=== PATIENT | female | born 1980 | race Caucasian/White ===

== ENCOUNTER 2019-01-21 01:28 | Emergency (ER) | payer BC ==
[~2019-01-21] VITALS: Ht 167.6 cm; Wt 59.1 kg
[~2019-01-21 01:28] MED LIST: ALPR-624; CYAN-19 PO; DIPH-522; ERGO400C PO; OMEP-84 PO; PROP10TA10 PO; SULF500T59 PO; TRINTELLIX 20MG TAB PO
[2019-01-21] MEDS ORDERED: pantoprazole 40 MG vial IV ONE (02:40)
[2019-01-21] MEDS ORDERED: ondansetron/PF 4mg/2ml inj IV ONE (02:40)
[2019-01-21] MEDS ORDERED: normal saline 1000ml 1,000 ML IV ONE (02:40)
[2019-01-21] MEDS ORDERED: dicyclomine 10mg/ml 2ml ampule IM ONE (02:40)
[2019-01-21] MEDS ORDERED: morphine 4 MG/ML inj SYRINge IV ONE (02:40)
[2019-01-21] MEDS ORDERED: ketorolac trometh. 30mg/ml inj. IV ONE (02:45)
--- NOTE | 2019-01-21 03:33 | NUR ---
pt reports she is feelng worse since getting the meds (given aprox 8 min ago). she feels very nauseaus. dr. green updated and states to given the meds more time.
[2019-01-21] MEDS ORDERED: proCHLORperazine 10 MG/2 ml inj IV ONE (04:10)
[2019-01-21] MEDS ORDERED: LORazepam 2 mg/ml vial IV ONE (04:10)
[2019-01-21] MEDS ORDERED: PHE25R PR (04:38)
--- NOTE | 2019-01-21 04:48 | NUR ---
PT WITH STABLE VS AND REPORTS NO FUTHER NAUSEA AFTER ADMIN OF COMPAZINE
[2019-01-21 05:14] VITALS: BP 134/78
== END 2019-01-21 05:16 | disposition home or self-care (01) ==
LOC: ER 01:29
DX: R10.9 Unspecified abdominal pain (principal); G89.29 Other chronic pain; K50.90 Crohn's disease, unspecified, without complications; E07.9 Disorder of thyroid, unspecified; F12.90 Cannabis use, unspecified, uncomplicated; Z56.0 Unemployment, unspecified; Z88.6 Allergy status to analgesic agent; Z87.11 Personal history of peptic ulcer disease; Z79.899 Other long term (current) drug therapy
CPT/HCPCS: 96361; 96374; 96375; 99283; C9113; J0500; J0780; J1885; J2060; J2270; J2405; J7030

== ENCOUNTER 2019-03-19 16:20 | Emergency (ER) | payer BC ==
[~2019-03-19] VITALS: Ht 170.2 cm; Wt 61.4 kg
[~2019-03-19 16:20] MED LIST changes: +PHE25R PR
[2019-03-19 16:46] VITALS: BP 143/88
[2019-03-19] MEDS ORDERED: orphenadrine citrate 60mg/2ml inj. IM ONE (18:15)
[2019-03-19] MEDS ORDERED: CYCL-1 PO (18:32)
== END 2019-03-19 19:15 | disposition home or self-care (01) ==
LOC: ER 16:20
DX: S29.019A Strain of muscle and tendon of unspecified wall of thorax, initial encounter (principal); R05 Cough; F12.90 Cannabis use, unspecified, uncomplicated; Z98.890 Other specified postprocedural states; Z56.0 Unemployment, unspecified; Z88.8 Allergy status to other drugs, medicaments and biological substances; Z79.899 Other long term (current) drug therapy; X50.1XXA Overexertion from prolonged static or awkward postures, initial encounter; Y93.89 Activity, other specified; Y92.89 Other specified places as the place of occurrence of the external cause; Y99.8 Other external cause status
CPT/HCPCS: 96372; 99283; J2360

== ENCOUNTER 2019-11-07 01:52 | Emergency (ER) | payer BC ==
[~2019-11-07] VITALS: Ht 165.1 cm; Wt 61.4 kg
[~2019-11-07 01:52] MED LIST changes: -CYAN-19 PO; +CYAN-51 PO; +CYCL-1 PO
[2019-11-07] MEDS ORDERED: normal saline 1000ML IV soln IVB ONE (01:55)
[2019-11-07] MEDS ORDERED: ondansetron/PF 4mg/2ml inj IV ONE (01:55)
[2019-11-07] MEDS ORDERED: haloperidol lactate 5mg/ml inj IM ONE (02:00)
[2019-11-07] MEDS ORDERED: LORazepam 2 mg/ml vial IV ONE (02:00)
[2019-11-07] MEDS ORDERED: fentaNYL/PF 50MCG/1 ML 2ML syringe IV ONE (02:10)
[2019-11-07 02:13] LABS: BASOPHILS # (AUTO) 0.1 X10'3 (0-0.2); BASOPHILS % (AUTO) 0.8 % (0-1); EOSINOPHILS % (AUTO) 0 % (0-6); HEMATOCRIT 42.8 % (35.0-45.0); HEMOGLOBIN 14.9 g/dl (12.0-16.0); LYMPHOCYTES # (AUTO) 1.4 X10'3 (1.1-4.8); LYMPHOCYTES % (AUTO) 10.3 % (21-51); MEAN CORPUSCULAR HGB CONC 34.9 g/dL (33.0-36.5); MEAN CORPUSCULAR VOLUME 83.3 FL (78-98); MEAN PLATELET VOLUME 8.4 FL (7.4-10.4); MONOCYTES # (AUTO) 0.9 X10'3 (0-0.9); MONOCYTES % (AUTO) 6.4 % (2-12); NEUTROPHILS # (AUTO) 11.2 X10'3 (1.8-7.7); NEUTROPHILS % (AUTO) 82.5 % (42-75); PLATELET COUNT 356 X10'3 (140-440); RED BLOOD COUNT 5.14 X10'6 (4.20-5.60); RED CELL DISTRIBUTION WIDTH 14.8 % (11.5-14.5); WHITE BLOOD COUNT 13.6 X10'3 (4.5-11.0)
[2019-11-07 02:24] LABS: ALANINE AMINOTRANSFERASE 46 U/L (12-78); ALBUMIN 4.5 G/DL (3.4-5.0); ALBUMIN/GLOBULIN RATIO 1.2 (1.1-1.5); ALKALINE PHOSPHATASE 116 IU/L (46-116); ANION GAP 13 (8-16); ASPARTATE AMINO TRANSFERASE 130 U/L (10-37); BILIRUBIN,TOTAL 0.7 MG/DL (0.1-1.0); BLOOD UREA NITROGEN 15 MG/DL (7-18); BUN/CREATININE RATIO 17.6 (6.6-38.0); CALCIUM 10.1 MG/DL (8.5-10.1); CHLORIDE 100 MMOL/L (99-107); CREATININE 0.85 MG/DL (0.40-0.90); GLUCOSE 122 MG/DL (70-104); LIPASE 82 U/L (73-393); POTASSIUM 3.7 MMOL/L (3.5-5.1); SODIUM 136 MMOL/L (135-145); TOTAL PROTEIN 8.2 G/DL (6.4-8.2); eGFR 74 ML/MIN
[2019-11-07 02:41] LABS: CLARITY,URINE SLIGHTLY CLOUDY (Clear); COLOR,URINE YELLOW (Yellow); GLUCOSE, URINE NEGATIVE (Neg); KETONES,URINE 15 mg/dl (Neg); LEUKOCYTE ESTERASE ,URINE NEGATIVE (Neg); NITRITES, URINE NEGATIVE (Neg); OCCULT BLOOD,URINE SMALL (Neg); PH,URINE 5.5 (4.8-8.0); PROTEIN,URINE 100 mg/dl (Neg); UROBILINOGEN,URINE 0.2 E.U/dL (0.2-1.0)
[2019-11-07 02:43] LABS: URINE HCG NEGATIVE (NEG)
[2019-11-07 03:07] LABS: UA COLLECTION TYPE CLN CATCH MIDSTREAM
[2019-11-07 03:10] LABS: BACTERIA,URINE 1+ /HPF (Neg); MUCUS STRANDS MANY /LPF (Neg); RBC,URINE 0-2 /HPF (0-2); SQUAMOUS EPITHELIAL CELL,UR MODERATE /LPF (FEW)
[2019-11-07 03:11] LABS: CELLULAR CAST 0-4 /LPF (NEGATIVE); COARSE GRANULAR CAST 0-3 /LPF (NEGATIVE)
[2019-11-07 03:39] VITALS: BP 107/75
== END 2019-11-07 03:41 | disposition home or self-care (01) ==
LOC: ER 01:52
DX: R10.84 Generalized abdominal pain (principal); R50.9 Fever, unspecified; R11.2 Nausea with vomiting, unspecified; F41.9 Anxiety disorder, unspecified; F32.9 Major depressive disorder, single episode, unspecified; Z90.89 Acquired absence of other organs; Z56.0 Unemployment, unspecified; Z88.8 Allergy status to other drugs, medicaments and biological substances; Z79.899 Other long term (current) drug therapy
CPT/HCPCS: 36415; 80053; 81001; 81025; 83690; 85025; 87088; 96361; 96372; 96374; 96375; 99283; J1630; J2060; J2405; J3010; J7030

== ENCOUNTER 2019-11-09 08:33 | Emergency (ER) | payer BC ==
[~2019-11-09] VITALS: Ht 170.2 cm; Wt 59.0 kg
[2019-11-09 09:16] LABS: BASOPHILS # (AUTO) 0.1 X10'3 (0-0.2); BASOPHILS % (AUTO) 0.9 % (0-1); EOSINOPHILS # (AUTO) 0.1 X10'3 (0-0.9); EOSINOPHILS % (AUTO) 0.8 % (0-6); HEMATOCRIT 44.7 % (35.0-45.0); HEMOGLOBIN 15.3 g/dl (12.0-16.0); LYMPHOCYTES # (AUTO) 1.4 X10'3 (1.1-4.8); LYMPHOCYTES % (AUTO) 13.7 % (21-51); MEAN CORPUSCULAR HGB CONC 34.2 g/dL (33.0-36.5); MEAN CORPUSCULAR VOLUME 84.9 FL (78-98); MEAN PLATELET VOLUME 8.1 FL (7.4-10.4); MONOCYTES # (AUTO) 0.6 X10'3 (0-0.9); MONOCYTES % (AUTO) 5.8 % (2-12); NEUTROPHILS # (AUTO) 8.2 X10'3 (1.8-7.7); NEUTROPHILS % (AUTO) 78.8 % (42-75); PLATELET COUNT 353 X10'3 (140-440); RED BLOOD COUNT 5.26 X10'6 (4.20-5.60); RED CELL DISTRIBUTION WIDTH 14.4 % (11.5-14.5); WHITE BLOOD COUNT 10.4 X10'3 (4.5-11.0)
[2019-11-09 09:35] LABS: ALANINE AMINOTRANSFERASE 50 U/L (12-78); ALBUMIN 4.2 G/DL (3.4-5.0); ALBUMIN/GLOBULIN RATIO 1.3 (1.1-1.5); ALKALINE PHOSPHATASE 106 IU/L (46-116); AMYLASE 79 U/L (25-115); ANION GAP 12 (8-16); ASPARTATE AMINO TRANSFERASE 82 U/L (10-37); BILIRUBIN,TOTAL 0.8 MG/DL (0.1-1.0); BLOOD UREA NITROGEN 14 MG/DL (7-18); BUN/CREATININE RATIO 20.3 (6.6-38.0); CALCIUM 9.2 MG/DL (8.5-10.1); CHLORIDE 104 MMOL/L (99-107); CREATININE 0.69 MG/DL (0.40-0.90); GLUCOSE 113 MG/DL (70-104); LIPASE 97 U/L (73-393); POTASSIUM 3.6 MMOL/L (3.5-5.1); SODIUM 143 MMOL/L (135-145); TOTAL CARBON DIOXIDE 27.2 MMOL/L (24-32); TOTAL PROTEIN 7.5 G/DL (6.4-8.2); eGFR > 90 ML/MIN
[2019-11-09] MEDS ORDERED: morphine 4 MG/ML inj SYRINge IV PRN (10:00)
[2019-11-09] MEDS ORDERED: normal saline 1000ML IV soln IVB ONE (10:00)
[2019-11-09] MEDS ORDERED: ondansetron/PF 4mg/2ml inj IV ONE (10:00)
[2019-11-09] MEDS ORDERED: LORazepam 2 mg/ml vial IV ONE (10:05)
[2019-11-09 11:53] LABS: CLARITY,URINE SLIGHTLY CLOUDY (Clear); COLOR,URINE YELLOW (Yellow); GLUCOSE, URINE NEGATIVE (Neg); KETONES,URINE >=80 mg/dl (Neg); LEUKOCYTE ESTERASE ,URINE NEGATIVE (Neg); NITRITES, URINE NEGATIVE (Neg); OCCULT BLOOD,URINE NEGATIVE (Neg); PROTEIN,URINE 30 mg/dl (Neg); URINE HCG NEGATIVE (NEG); UROBILINOGEN,URINE 0.2 E.U/dL (0.2-1.0)
[2019-11-09 11:54] LABS: UA COLLECTION TYPE CLN CATCH MIDSTREAM
[2019-11-09 11:59] LABS: BACTERIA,URINE FEW /HPF (Neg); MUCUS STRANDS MODERATE /LPF (Neg); RBC,URINE NONE SEEN /HPF (0-2); SQUAMOUS EPITHELIAL CELL,UR FEW /LPF (FEW); WBC,URINE 0-4 /HPF (0-4)
[2019-11-09 12:00] LABS: URINE AMPHETAMINE SCREEN NEGATIVE (Neg); URINE BARBITUATE SCREEN NEGATIVE (Neg); URINE BENZODIAZEPINES SCREEN POSITIVE (Neg); URINE CANNABINOID SCREEN POSITIVE (Neg); URINE COCAINE SCREEN NEGATIVE (Neg); URINE METHADONE SCREEN NEGATIVE (Neg); URINE OPIATE SCREEN POSITIVE (Neg); URINE PHENCYCLIDINE SCREEN NEGATIVE (Neg)
[2019-11-09] MEDS ORDERED: ketorolac trometh. 30mg/ml inj. IV ONE (12:05)
--- NOTE | 2019-11-09 12:40 | NUR ---
patient up for discharge and the second liter was not finished and the patient did not want the rest of the bolus to finish up
[2019-11-09 12:47] VITALS: BP 113/70
== END 2019-11-09 12:53 | disposition home or self-care (01) ==
LOC: ER 08:34
DX: N83.201 Unspecified ovarian cyst, right side (principal); R11.2 Nausea with vomiting, unspecified; F41.9 Anxiety disorder, unspecified; F32.9 Major depressive disorder, single episode, unspecified; Z98.890 Other specified postprocedural states; Z56.0 Unemployment, unspecified; Z88.8 Allergy status to other drugs, medicaments and biological substances; Z79.899 Other long term (current) drug therapy
CPT/HCPCS: 36415; 74176; 80053; 80305; 81001; 81025; 82150; 83690; 85025; 96361; 96374; 96375; 99284; J1885; J2060; J2270; J2405; J7030